=== PATIENT | female | born 1945 | race Caucasian/White ===

== ENCOUNTER 2016-07-13 22:08 | Emergency (ER) | payer MEDICARE, BC ==
[2016-07-13] MEDS ORDERED: MECLIZINE 12.5 MG TAB PO STA (22:33)
--- NOTE | 2016-07-13 22:35 | ED ---
Dizziness HPI - General Chief Complaint: Dizziness Stated Complaint: Dizziness Time Seen by Provider: 07/13/16 22:19 Source: patient Mode of arrival: wheelchair Limitations: no limitations - History of Present Illness Initial Comments: This patient is a 71-year-old woman who presents with the complaint that she is feeling "dizzy." Patient states that she had been feeling well all day, and had gone to one of her children's homes of this evening. When she was getting ready to leave, after the meal, she felt off balance and that it was difficult to walk. She states that the symptoms are made worse if she turns her head. The symptoms resolve if she remains still. She had no accompanying symptoms other than some nausea that is present when she turns her head or attempts to move, but is otherwise not there. Patient denies any associated chest pain, dyspnea, diaphoresis, vomiting, palpitations or syncope. MD Complaint: dizziness Onset/Timin -: hour(s) Timing: sudden onset Description: off-balance, difficulty walking History of Same: No History of Trauma: No Severity: moderate Improves With: remaining still Worsens With: movement Associated Symptoms: denies other symptoms - Related Data Home Medications Medication Instructions Recorded Confirmed Atorvastatin [Lipitor] 1 tab PO DAILY 07/13/16 07/13/16 Benazepril/Hydrochlorothiazide 1 tab PO DAILY 07/13/16 07/13/16 [Benazepril-Hctz 10-12.5 mg Tab] Pioglitazone [Actos] 1 tab PO DAILY 07/13/16 07/13/16 glyBURIDE [Glyburide] 2 tab PO BID 07/13/16 07/13/16 metFORMIN HCL [metFORMIN HCL ER] 1 tab PO BID 07/13/16 07/13/16 Allergies Allergy/AdvReac Type Severity Reaction Status Date / Time No Known Allergies Allergy Verified 07/13/16 22:11 Review of Systems ROS Statement: Those systems with pertinent positive or pertinent negative responses have been documented in the HPI. ROS Other: All systems not noted in ROS Statement are negative. Constitutional: Denies: fever, chills, weakness Eyes: Denies: vision change Respiratory: Denies: cough, dyspnea Cardiovascular: Denies: chest pain, palpitations, edema, syncope Gastrointestinal: Reports: as per HPI, nausea. Denies: abdominal pain, vomiting , diarrhea, constipation Genitourinary: Denies: dysuria, hematuria Musculoskeletal: Denies: back pain Skin: Denies: rash Neurological: Reports: vertigo. Denies: headache, weakness, numbness, paresthesias, confusion Past Medical History Past Medical History: Diabetes Mellitus, Hyperlipidemia, Hypertension History of Any Multi-Drug Resistant Organisms: None Reported Additional Past Surgical History / Comment(s): carpal tunnel Past Psychological History: No Psychological Hx Reported Smoking Status: Never smoker Past Alcohol Use History: None Reported Past Drug Use History: None Reported General Exam Limitations: no limitations General appearance: alert, in no apparent distress Head exam: Present: atraumatic, normocephalic Eye exam: Present: normal appearance, PERRL, EOMI, nystagmus. Absent: scleral icterus, conjunctival injection ENT exam: Present: normal oropharynx Neck exam: Present: normal inspection, full ROM. Absent: meningismus Respiratory exam: Present: normal lung sounds bilaterally. Absent: respiratory distress, wheezes, rales, rhonchi, stridor Cardiovascular Exam: Present: regular rate, normal rhythm, normal heart sounds. Absent: systolic murmur, diastolic murmur, rubs, gallop GI/Abdominal exam: Present: soft. Absent: distended, tenderness, guarding, rebound, rigid, mass Extremities exam: Present: normal inspection, normal capillary refill. Absent: pedal edema, calf tenderness Back exam: Present: normal inspection. Absent: CVA tenderness (R), CVA tenderness (L) Neurological exam: Present: alert, oriented X3, CN II-XII intact. Absent: motor sensory deficit Skin exam: Present: warm, dry, intact, normal color. Absent: rash Course Vital Signs 07/13/16 07/13/16 07/14/16 22:11 23:21 00:20 Temperature 98.6 F Pulse Rate 58 L 108 H 65 Respiratory 20 18 18 Rate Blood Pressure 152/70 108/59 118/63 O2 Sat by Pulse 98 97 96 Oximetry EKG Findings - EKG Results: EKG: interpreted by ALO, sinus rhythm (Rate 65 bpm), normal axis, normal QRS, normal ST/T, no acute changes - PA, Pacemaker, Normal: Normal tracing: normal tracing Medical Decision Making - Lab Data Result diagrams: 07/13/16 22:25 07/13/16 22:25 Lab Results 05/09/2207/13/16 07/14/16 Range/Units 22:25 22:25 00:07 WBC 6.1 (3.8-10.6) k/uL RBC 3.87 (3.80-5.40) m/uL Hgb 12.7 (11.4-16.0) gm/dL Hct 39.7 (34.0-46.0) % MCV 102.6 H (80.0-100.0) fL MCH 32.9 (25.0-35.0) pg MCHC 32.0 (31.0-37.0) g/dL RDW 13.5 (11.5-15.5) % Plt Count 177 (150-450) k/uL Neutrophils % 58 % Lymphocytes % 27 % Monocytes % 7 % Eosinophils % 4 % Basophils % 1 % Neutrophils # 3.6 (1.3-7.7) k/uL Lymphocytes # 1.6 (1.0-4.8) k/uL Monocytes # 0.4 (0-1.0) k/uL Eosinophils # 0.2 (0-0.7) k/uL Basophils # 0.0 (0-0.2) k/uL Macrocytosis Slight Sodium 141 (137-145) mmol/L Potassium 4.2 (3.5-5.1) mmol/L Chloride 103 (98-107) mmol/L Carbon Dioxide 30 (22-30) mmol/L Anion Gap 8 mmol/L BUN 19 H (7-17) mg/dL Creatinine 0.80 (0.52-1.04) mg/dL Est GFR (MDRD) Af Amer >60 (>60 ml/min/1.73 sqM) Est GFR (MDRD) Non-Af >60 (>60 ml/min/1.73 sqM) Glucose 178 H (74-99) mg/dL Calcium 9.0 (8.4-10.2) mg/dL Total Bilirubin 0.5 (0.2-1.3) mg/dL AST 32 (14-36) U/L ALT 41 (9-52) U/L Alkaline Phosphatase 77 (38-126) U/L Total Protein 7.0 (6.3-8.2) g/dL Albumin 3.8 (3.5-5.0) g/dL Urine Color Yellow Urine Appearance Clear (Clear) Urine pH 6.0 (5.0-8.0) Ur Specific [place] 1.021 (1.001-1.035) Urine Protein Negative (Negative) Urine Glucose (UA) Trace H (Negative) Urine Ketones Negative (Negative) Urine Blood Trace H (Negative) Urine Nitrite Negative (Negative) Urine Bilirubin Negative (Negative) Urine Urobilinogen 3.0 (<2.0) mg/dL Ur Leukocyte Esterase Trace H (Negative) Urine RBC <1 (0-5) /hpf Urine WBC 1 (0-5) /hpf Ur Squamous Epith Cells <1 (0-4) /hpf Urine Mucus Rare H (None) /hpf Disposition Clinical Impression: Dehydration, Vertigo Disposition: HOME SELF-CARE Condition: Good Instructions: Dizziness (ED) Referrals: Dhiraj Torres MD [Primary Care Provider] - 1-2 days
[2016-07-13 22:48] LABS: Basophils % (A) 1 %; CH 33.6; CHCM 32.9; Eosinophils # (A) 0.2 k/uL (0-0.7); Eosinophils % (A) 4 %; HCT 39.7 % (34.0-46.0); HDW 2.25; HGB 12.7 gm/dL (11.4-16.0); Luc # (Auto) 0.23; Luc % (Auto) 4; Lymphocytes # (A) 1.6 k/uL (1.0-4.8); Lymphocytes % (A) 27 %; MCH 32.9 pg (25.0-35.0); MCV 102.6 fL (80.0-100.0); Macrocytosis Slight; Mean Platelet Volume 7.4; Monocytes # (A) 0.4 k/uL (0-1.0); Monocytes % (A) 7 %; Neutrophils # (A) 3.6 k/uL (1.3-7.7); Neutrophils % (A) 58 %; RBC 3.87 m/uL (3.80-5.40); RDW 13.5 % (11.5-15.5); WBC 6.1 k/uL (3.8-10.6); WBC (Perox) 6.25
[2016-07-13 22:57] LABS: ALT 41 U/L (9-52); AST 32 U/L (14-36); Alkaline Phosphatase 77 U/L (38-126); Anion Gap 8 mmol/L; Blood Urea Nitrogen 19 mg/dL (7-17); Carbon Dioxide 30 mmol/L (22-30); Chloride 103 mmol/L (98-107); Glucose 178 mg/dL (74-99); Non-African American GFR(MDRD) >60 (>60 ml/min/1.73 sqM); Potassium 4.2 mmol/L (3.5-5.1); Sodium 141 mmol/L (137-145); Total Bilirubin 0.5 mg/dL (0.2-1.3)
--- NOTE | 2016-07-13 23:16 | XR ---
EXAM: XR Chest, 1 View CLINICAL HISTORY: Reason: dizziness TECHNIQUE: Frontal view of the chest. COMPARISON: No relevant prior studies available. FINDINGS: Lungs: Unremarkable. No consolidation. Pleural space: Unremarkable. No pneumothorax. Heart: Unremarkable. No cardiomegaly. Mediastinum: Unremarkable. Bones/joints: No acute osseous abnormality. Vasculature: Tortuosity and/or ectasia of the thoracic aorta. Tubes, lines and devices: Telemetry leads overlie the patient. IMPRESSION: No acute cardiopulmonary process.
[2016-07-13 23:22] VITALS: RESP 18
[2016-07-13] MEDS ORDERED: SODIUM CHLORIDE 0.9% 500 ML IV STA (23:32)
[2016-07-14 00:49] LABS: Appearance,Urine Clear (Clear); Bilirubin,Urine Negative (Negative); Glucose,Urine (UA) Trace (Negative); Ketones,Urine Negative (Negative); Leukocyte Esterase,Urine Trace (Negative); Mucus,Urine Rare /hpf; Nitrite,Urine Negative (Negative); Particle Count 1626; Protein,Urine Negative (Negative); RBC,Urine <1 /hpf (0-5); Specific Gravity,Urine 1.021 (1.001-1.035); Squamous Epithelial Cell,Urine <1 /hpf (0-4); UA Billing (MACRO vs. MICRO) MICRO; WBC,Urine 1 /hpf (0-5)
[2016-07-14 01:56] VITALS: BP 102/59; PULSE 64; TEMP 98
== END 2016-07-14 01:40 | disposition home or self-care (01) ==
LOC: EC 22:08
DX: E86.0 Dehydration (principal); R42 Dizziness and giddiness; E11.9 Type 2 diabetes mellitus without complications; E78.5 Hyperlipidemia, unspecified; I10 Essential (primary) hypertension; Z95.0 Presence of cardiac pacemaker; Z79.84 Long term (current) use of oral hypoglycemic drugs; Z79.899 Other long term (current) drug therapy
CPT/HCPCS: 36415; 71010; 80053; 81001; 85025; 93005; 96360; 99284

== ENCOUNTER → 2021-06-05 | Outpatient (CLI) | payer MEDICARE, BC ==
--- NOTE | 2021-06-05 15:26 | US ---
LOWER EXTREMITY VENOUS INSUFFICIENCY CLINICAL HISTORY: L97.774 NON PRESSURE CHRONIC ULCER. Non healing wound right 2nd toe, wound care az[place] ter patient. Bilateral swelling. SIDE PERFORMED: Bilateral 1) Color flow is present and patency is documented in the following vessels. No DVT or SVT is noted . Common Femoral Vein Deep Femoral Vein Femoral Vein Popliteal Vein Proximal Calf Veins Greater Saph Vein Upper Small Saph Vein 2) There is venous reflux noted at the following venous levels: none 3) Incompetent perforators are noted at these levels: none IMPRESSION: No ultrasound evidence for acute DVT in either lower extremity.
--- NOTE | 2021-06-06 11:36 | US ---
EXAMINATION TYPE: US arterial LE multi level DATE OF EXAM: 06/05/2021 3:02 PM CLINICAL HISTORY: L97.512 NON PRESSURE CHRONIC ULCER. History of hyperlipidemia and hypertension. His tory of diabetes and prior vascular surgery with nonhealing wound right second toe. Bilateral leg swe lling. Doppler Waveforms: Right: Monophasic to biphasic Left: Monophasic to biphasic Pulse Volume Recording: Loss of dicrotic notch on the right. More prominent flattening on the left. Pressure Gradients: n/a Ankle-Brachial Indices: Right: 1.25 Left: 1.06 Toe Brachial Indices: Right: 0.87 Left: 0.85 IMPRESSION: Normal values to the WILFRID and TBI's but this loss of phasicity bilaterally raises concern for significant proximal stenosis prior to groin levels. Clinical correlation and follow-up advised.
== END | disposition home or self-care (01) ==
LOC: RADUSWWP 13:08
PROVIDERS: ATTEND Thoracic Surgery (Cardiothoracic Vascular Surgery)
DX: E11.621 Type 2 diabetes mellitus with foot ulcer (principal); L97.512 Non-pressure chronic ulcer of other part of right foot with fat layer exposed; Z85.72 Personal history of non-Hodgkin lymphomas
CPT/HCPCS: 93923; 93970

== ENCOUNTER → 2021-06-07 | Outpatient (CLI) | payer MEDICARE, BC ==
--- NOTE | 2021-06-07 13:06 | XR ---
Right foot HISTORY: L97.512 3 views of the right foot There is a plantar calcaneal spur present. Bone mineralization is reduced. Some degenerative changes present at the intertarsal joints. Soft tissue swelling is noted. No periostitis evident. Hammertoe d eformity noted at the second digit. There is associated soft tissue swelling. Osteoarthritic change a lso present at the first metatarsophalangeal joint, digits are flexed. IMPRESSION: Osteoarthritis, additional findings above.
== END | disposition home or self-care (01) ==
LOC: RADXRMAIN 12:12
PROVIDERS: ATTEND Podiatrist
DX: M19.071 Primary osteoarthritis, right ankle and foot (principal)